=== PATIENT | female | born 1995 | race African-American/Black ===

== ENCOUNTER → 2024-09-12 07:50 | Outpatient (CLI) | payer OTHER, SELFPAY ==
--- NOTE | 2024-09-12 | DI.MRI.S_ITS ---
PROCEDURE: MR HEAD/BRAIN WO CON INDICATIONS: Headache, unspecified TECHNIQUE: Noncontrast axial T1 spin echo, axial T2 fast spin echo, sagittal and axial FLAIR, coronal T2 fast spin echo, axial gradient echo, axial diffusion and ADC through the brain. COMPARISON: None. FINDINGS: Image quality: Excellent. CSF Spaces: Basal cisterns are patent. No extra-axial fluid collections. Ventricles are normal in size and shape. Brain: No intracranial masses or hemorrhage. Hanks/white matter interface is normal. Brainstem appears normal. Diffusion-weighted images demonstrate no acute infarct. No chronic ischemic insults. Normal intravascular flow voids are present. The cerebellar tonsils demonstrate a normal shape and are not abnormally low lying. Skull and face: Calvarium has normal marrow signal. Orbits appear normal. Sinuses: Sinuses and mastoids are clear. IMPRESSION: Unremarkable intracranial study, without an imaging explanation found for the patient's presenting history of headache. To the limits of this noncontrast study, no findings of intracranial masses or mass effect can be seen. No findings of hydrocephalus or brain edema can be seen. Negative for Chiari 1 malformation. Dictated by: Gurvinder Danielle M.D. on 09/12/2024 at 16:40 Approved by: Gurvinder Danielle M.D. on 09/12/2024 at 16:41
== END ==
PROVIDERS: Referring Provider Preventive Medicine Aerospace Medicine; Visit Provider Preventive Medicine Aerospace Medicine
DX: R51.9 Headache, unspecified (principal)
CPT/HCPCS: 70551